=== PATIENT | male | born 2000 | race Two or more races ===

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

== ENCOUNTER 2022-05-20 19:42 | Emergency (ER) | payer OTHER ==
[~2022-05-20] VITALS: Ht 172.7 cm; Wt 81.6 kg
[~2022-05-20 19:42] MED LIST: NAPR-54 PO; PROM118S5 PO
[2022-05-20 19:45] VITALS: BP 107/77
--- NOTE | 2022-05-20 19:48 | NUR ---
TO LOBBY A/W BED AMBULATORY
--- NOTE | 2022-05-20 21:59 | NUR ---
PT AMBULATED TO ER BED 1
[2022-05-20] MEDS ORDERED: ALBUTEROL 0.083% 2.5 MG/3 ML NEBU INH ONE (22:10)
[2022-05-20] MEDS ORDERED: predniSONE 20 MG TAB PO ONE (22:10)
[2022-05-20] MEDS ORDERED: IPRATROPIUM 0.02% 0.5 MG/2.5 ML NEBU INH ONE (22:10)
--- NOTE | 2022-05-20 22:24 | NUR ---
pt has sob for 3 days and worsening while at work today. he is satting at 99 persent on room air, ambulatory.
[2022-05-20] MEDS ORDERED: ALBU0.0912 IH (23:06)
[2022-05-20] MEDS ORDERED: PRED20TA5 PO (23:06)
[2022-05-20 23:44] VITALS: BP 107/77
--- NOTE | 2022-05-20 23:45 | NUR ---
Patient discharged with v/s stable. Written and verbal after care instructions given and explained. Patient verbalized understanding. Ambulatory with steady gait. All questions addressed prior to discharge. Advised to follow up with PMD. Pt left with his belonging
== END 2022-05-20 23:44 | disposition home or self-care (01) ==
LOC: MED 19:42
DX: J45.901 Unspecified asthma with (acute) exacerbation (principal)
CPT/HCPCS: 71045; 94640; 99283; J7512; J7613; J7644; Q0092